=== PATIENT | male | born 1985 | race Caucasian/White ===

== ENCOUNTER 2016-07-26 19:31 | Emergency (ER) | payer BC ==
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
== END 2016-07-26 20:26 ==
LOC: ER 19:31
DX: S01.81XA Laceration without foreign body of other part of head, initial encounter (principal); V53.5XXA Driver of pick-up truck or van injured in collision with car, pick-up truck or van in traffic accident, initial encounter